=== PATIENT | male | born 1995 | race African-American/Black ===

== ENCOUNTER 2017-07-28 00:22 | Emergency (ER) | payer SELFPAY ==
[2017-07-28 00:35] VITALS: BP 125/84
[2017-07-28] MEDS ORDERED: Metoclopramide 10 MG/2 ML SDV IVPUSH ONE (00:42)
[2017-07-28] MEDS ORDERED: Dextrose 5%-0.9% NaCl 1,000 ML IV SCH (00:45)
--- NOTE | 2017-07-28 00:46 | EDM.PDOC ---
ED HPI GENERAL MEDICAL PROBLEM - General Chief Complaint: Gastrointestinal Problem Stated Complaint: VOMITING Time Seen by Provider: 07/28/17 00:41 Source of Information: Reports: Patient, Family (friend) History Limitations: Reports: No Limitations - History of Present Illness INITIAL COMMENTS - FREE TEXT/NARRATIVE: 22-year-old male of -[place] descent presents to the ED with complaints of persistent nausea and vomiting 4 days. He has had no diarrhea. He has pain only in his upper abdomen from vomiting. Denies any hematemesis. He is dizzy and lightheaded when he stands. Feeling generally quite weak. He believes some of the water that he's been drinking his stay down only. No bowel movement for 3 days. Possibility of bad food as a source of illness identified as he ate food that had been prepared 4 days prior left in 10 fall in the microwave. This included barbecued ribs and some corn and other foods. Became ill shortly after this. He has never developed any diarrhea. Denies drinking any alcohol and he takes no medications. Emesis is dark bile-stained. Onset: Sudden Onset Date: 07/24/17 Duration: Day(s): Location: Reports: Abdomen (recurrent nausea and vomiting.) Quality: Reports: Ache Severity: Moderate Improves with: Reports: None Worsens with: Reports: Eating Context: Denies: Activity (and/or drinking.), Exercise, Lifting, Sick Contact, Trauma, Other Associated Symptoms: Reports: Nausea/Vomiting (intractable 4 days.), Weakness. 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 (see below) (nothing will stay down) - Related Data Allergies Allergy/AdvReac Type Severity Reaction Status Date / Time No Known Allergies Allergy Verified 07/28/17 00:36 Home Meds: Home Meds Ondansetron [Zofran ODT] 4 mg PO Q6H #2 tab.dis 07/28/17 [Rx] Ondansetron [Zofran ODT] 4 mg PO Q6H #5 tab.dis 07/28/17 [Rx] Past Medical History - Past Health History Medical/Surgical History: Denies Medical/Surgical History Musculoskeletal History: Reports: Other (See Below) Other Musculoskeletal History: dislocated shoulder Social & Family History - Family History Family Medical History: Noncontributory - Tobacco Use Smoking Status *Q: Current Some Day Smoker Years of Tobacco use: 4 Packs/Tins Daily: 0.2 - Caffeine Use Caffeine Use: Reports: Soda - Recreational Drug Use Recreational Drug Use: No Recreational Drug Type: Reports: Marijuana/Hashish Recreational Drug Use Frequency: Socially - Living Situation & Occupation Occupation: Employed ED ROS GENERAL - Review of Systems Review Of Systems: See Below Constitutional: Reports: Malaise, Weakness, Fatigue, Weight Loss. Denies: Fever , Chills HEENT: Reports: No Symptoms Respiratory: Reports: No Symptoms Cardiovascular: Reports: No Symptoms Endocrine: Reports: No Symptoms GI/Abdominal: Reports: Abdominal Pain, Nausea, Vomiting (persistent 4 days). Denies: Anorexia (only in the epigastrium from vomiting so much.), Black Stool : Reports: No Symptoms Musculoskeletal: Reports: No Symptoms Skin: Reports: No Symptoms Neurological: Reports: No Symptoms Psychiatric: Reports: No Symptoms, Other Hematologic/Lymphatic: Reports: No Symptoms Immunologic: Reports: No Symptoms ED EXAM, GI/ABD - Physical Exam Exam: See Below Exam Limited By: No Limitations General Appearance: Alert, WD/WN, No Apparent Distress Eyes: Bilateral: Normal Appearance (no jaundice) Throat/Mouth: Other Head: Atraumatic, Normocephalic (tongue is dry and coated.) Neck: Normal Inspection, Supple, Non-Tender, Full Range of Motion. No: Lymphadenopathy (L), Lymphadenopathy (R) Respiratory/Chest: No Respiratory Distress, Lungs Clear, Normal Breath Sounds, No Accessory Muscle Use Cardiovascular: Normal Peripheral Pulses, Regular Rate, Rhythm, No Edema, No Gallop, No Murmur, No Rub GI/Abdominal Exam: Normal Bowel Sounds, Soft, Non-Tender, No Organomegaly, No Distention, No Abnormal Bruit, No Mass, Pelvis Stable, Other (palpable left hemicolon.) (Male) Exam: No Hernia Back Exam: Normal Inspection, Full Range of Motion. No: CVA Tenderness (L) Extremities: Normal Inspection, Normal Range of Motion, Non-Tender, No Pedal Edema, Normal Capillary Refill Neurological: Alert, Oriented, CN II-XII Intact, Normal Cognition, No Motor/ Sensory Deficits Psychiatric: Normal Affect, Normal Mood Skin Exam: Warm, Dry, Intact, Normal Color, No Rash Course - Vital Signs Last Recorded V/S: Last Vital Signs Temp 36.1 C 07/28/17 00:32 Pulse 65 07/28/17 00:32 Resp 18 07/28/17 00:32 BP 125/84 07/28/17 00:32 Pulse Ox 100 07/28/17 00:32 - Orders/Labs/Meds Orders: Active Orders 24 hr Category Date Time Status Orthostatic Vital Signs [RC] ASDIRECTED Care 07/28/17 00:46 Active Dextrose 5%-0.9% NaCl [Dextrose 5%-Normal Saline] 1,000 Med 07/28/17 00:45 Active ml IV ASDIRECTED Medication Orders Dextrose/Sodium Chloride (Dextrose 5%-Normal Saline) 1,000 mls @ 999 mls/hr IV ASDIRECTED SOUMYA Last Admin: 07/28/17 00:52 Dose: 999 mls/hr Labs: Laboratory Tests 07/28/17 07/28/17 Range/Units 00:45 00:45 WBC 6.79 (4.23-9.07) K/mm3 RBC 5.67 (4.63-6.08) M/mm3 Hgb 16.4 (13.7-17.5) gm/L Hct 50.0 (40.1-51.0) % MCV 88.2 (79.0-92.2) fl MCH 28.9 (25.7-32.2) pg MCHC 32.8 (32.2-35.5) g/dl RDW Std Deviation 42.7 (35.1-43.9) fL Plt Count 253 (163-337) K/mm3 MPV 9.5 (9.4-12.3) fl Neutrophils % (Manual) 55 (40-60) % Band Neutrophils % 0 (0-10) % Lymphocytes % (Manual) 32 (20-40) % Atypical Lymphs % 4 % Monocytes % (Manual) 7 (2-10) % Eosinophils % (Manual) 2 (0.8-7.0) % Basophils % (Manual) 0 L (0.2-1.2) Platelet Estimate Adequate Plt Morphology Comment Normal Hypochromasia 1+ slight Poikilocytosis 1+ slight Tear Drop Cells 1+ slight RBC Morph Comment Abnormal Sodium 141 (136-145) mEq/L Potassium 3.7 (3.5-5.1) mEq/L Chloride 101 (98-107) mEq/L Carbon Dioxide 29 (21-32) mEq/L Anion Gap 14.7 (5-15) BUN 13 (7-18) mg/dL Creatinine 1.0 (0.7-1.3) mg/dL Est Cr Clr Drug Dosing TNP Estimated GFR (MDRD) > 60 (>60) mL/min BUN/Creatinine Ratio 13.0 L (14-18) Glucose 99 (74-106) mg/dL Calcium 10.0 (8.5-10.1) mg/dL Total Bilirubin 0.7 (0.2-1.0) mg/dL AST 19 (15-37) U/L ALT 19 (16-63) U/L Alkaline Phosphatase 91 (46-116) U/L C-Reactive Protein < 0.2 (<1.0) mg/dL Total Protein 9.0 H (6.4-8.2) g/dl Albumin 5.0 (3.4-5.0) g/dl Globulin 4.0 gm/dL Albumin/Globulin Ratio 1.3 (1-2) Lipase 63 L (73-393) U/L Meds: Medications Generic Name Dose Route Start Last Admin Trade Name Freq PRN Reason Stop Dose Admin Dextrose/Sodium Chloride 1,000 mls @ 999 mls/hr 07/28/17 00:45 07/28/17 00:52 Dextrose 5%-Normal Saline IV 999 mls/hr ASDIRECTED SOUMYA Administration Discontinued Medications Generic Name Dose Route Start Last Admin Trade Name Freq PRN Reason Stop Dose Admin Metoclopramide HCl 7.5 mg 07/28/17 00:42 07/28/17 00:52 Reglan IVPUSH 07/28/17 00:43 7.5 mg ONETIME ONE Administration - Radiology Interpretation Free Text/Narrative:: 22-year-old male presents the ED with reports of intractable nausea and vomiting 4 days. He does not appear to be amount is significant degree of distress. Heart rate is only 65 in sinus. Respiratory rate is normal. No ketones are evident on his breath. I believe some of the fluids that he is taking must be being retained. X-ray tongue is dry and coated. Benign abdominal examination. Plan orthostatic BPs. IV will be D5 normal saline at open. Will give Reglan 7.5 mg IV to arrest vomiting. Abner performed as well as a serum lipase. - Re-Assessments/Exams Free Text/Narrative Re-Assessment/Exam: 07/28/17 01:37labs report a white count of 6.79 differential pending hemoglobin is 16.4 with hematocrit of 50.0 suggesting some degree of hemoconcentration. Platelets are normal at 253,000. Chemistry shows a sodium of 141 potassium 3.7 anion gap is 14.7 renal function normal lipase normal at 63 total protein elevated at 9.0 again likely due to hemoconcentration serum glucose is 99.C- reactive protein is less than 0.2. 07/28/17 01:59differential on the white count is 55% neutrophils no bands. Patient is feeling improved after IV fluids but he does need more fluids as he is hemoconcentrated. We'll discharge home on Zofran 4 mg sublingual every 4-6 hours as needed for relief of nausea or vomiting. 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 Departure - Departure Time of Disposition: 02:01 Disposition: Home, Self-Care 01 Condition: Fair Clinical Impression: Viral gastritis Intractable nausea and vomiting Qualifiers: Vomiting type: unspecified Qualified Code(s): R11.2 - Nausea with vomiting, unspecified - Discharge Information Prescriptions: Ondansetron [Zofran ODT] 4 mg PO Q6H #2 tab.dis Ondansetron [Zofran ODT] 4 mg PO Q6H #5 tab.dis Referrals: PCP,None [Primary Care Provider] - Forms: ED Department Discharge Additional Instructions: Evaluation the emergency room tonight in regards to intractable nausea and vomiting 4 days with subsequent volume depletion or dehydration. You're therefore treated with IV fluids to replenish some of her fluid losses. Reglan 7.5 mg was given IV to help stop vomiting. Lab work did not shed any light on the prominent terms that normal white count without any signs of active infection. Mild dehydration appreciated but normal pancreas. Treatment is therefore clear fluids such as Gatorade or Powerade and in introduce diet as tolerated. Of course stay away from spicy foods and suggest no soda pop or citric acid juices until the stomach is improved which elected before days. May use Zofran 4 mg under the tongue every 4-6 hours as necessary for relief of any further nausea or vomiting. If not completely back to normal in 48 hours you should be reviewed. - My Orders Last 24 Hours: My Active Orders 07/28/17 00:45 Dextrose 5%-0.9% NaCl [Dextrose 5%-Normal Saline] 1,000 ml IV ASDIRECTED 07/28/17 00:46 Orthostatic Vital Signs [RC] ASDIRECTED - Assessment/Plan Last 24 Hours: My Active Orders 07/28/17 00:45 Dextrose 5%-0.9% NaCl [Dextrose 5%-Normal Saline] 1,000 ml IV ASDIRECTED 07/28/17 00:46 Orthostatic Vital Signs [RC] ASDIRECTED
[2017-07-28] MEDS ORDERED: Ondansetron 4 MG Tab.DIS ONE (02:13)
== END 2017-07-28 02:15 | disposition home or self-care (01) ==
LOC: JD.ED 00:22
DX: A08.4 Viral intestinal infection, unspecified (principal); F17.210 Nicotine dependence, cigarettes, uncomplicated
CPT/HCPCS: 36415; 80053; 83690; 85025; 86140; 96361; 96374; 99284; A9270; J2765; J7042